=== PATIENT | female | born 1945 | race Caucasian/White ===

== ENCOUNTER 2017-02-14 21:50 | Emergency (ER) | payer BC ==
[~2017-02-14] VITALS: Ht 167.6 cm; Wt 67.7 kg
[~2017-02-14 21:50] MED LIST: DEXI30CA2 PO; ESTR1TAB; TAB-TAB PO
[2017-02-14 21:53] VITALS: BP 123/65; PULSE 77; RESP 16; TEMP 97.9; O2SAT 100
[2017-02-14 22:11] VITALS: BP 123/65; PULSE 77; RESP 16; TEMP 97.9; O2SAT 100
--- NOTE | 2017-02-14 22:14 | PD ---
HPI Chief Complaint: Laceration/Skin Injury Time Seen by Provider: 22:08 Travel History International Travel<30 days: No Contact w/Intl Traveler<30days: No Traveled to known affect area: No History of Present Illness HPI 71-year-old female presents the emergency department with laceration to the distal left palmar surface of the fifth digit. Patient was helping her with a lamp when she was cut by a sharp edge. Patient attempted to fix the laceration herself with butterfly bandages without much success with continued bleeding. Pain is a 2 out of 10. She has no numbness or tingling. Range of motion is intact. No other injuries reported. Patient is unsure of her last tetanus. She has no known drug allergies. [facility] Past Medical History GERD: Yes Past Surgical History Tonsillectomy: Yes Social History Alcohol Use: Yes (1 COCKTAIL WITH DINNER 5 NIGHTS A WEEK) Tobacco Use: No Substance Use: No Allergies-Medications (Allergen,Severity, Reaction): Coded Allergies: No Known Allergies (Unverified , 03/11/15) Reported Meds & Prescriptions Reported Meds & Active Scripts Active Reported Dexilant 30 mg (Dexlansoprazole) 30 Mg Cap 30 Mg PO DAILY Lopreeza 0.5-0.1 mg (Estradiol & Norethindrone Acet) 1 Tab Tab Multivitamin (Multivitamins) 1 Tab Tab 1 Tab PO DAILY Review of Systems Except as stated in HPI: all other systems reviewed are Neg General / Constitutional: No: Fever Eyes: No: Visual changes HENT: No: Headaches Cardiovascular: No: Chest Pain or Discomfort Respiratory: No: Shortness of Breath Gastrointestinal: No: Abdominal Pain Genitourinary: No: Dysuria Musculoskeletal: No: Pain Skin: No Rash Neurologic: No: Weakness Psychiatric: No: Depression Endocrine: No: Polydipsia Hematologic/Lymphatic: No: Easy Bruising Physical Exam Narrative GENERAL: Patient appears in no apparent distress. SKIN: Warm and dry. Normal color. Normal turgor. Patient has somewhat jagged laceration measuring 1.5 cm laceration to the distal fourth digit on the palmar aspect of the left hand. HEAD: Atraumatic. Normocephalic. EYES: Pupils equal and round. No scleral icterus. No injection or drainage. ENT: No nasal bleeding or discharge. Mucous membranes pink and moist. Pharynx is normal. Airway is patent. NECK: Trachea midline. Supple nontender. CARDIOVASCULAR: Regular rate and rhythm. RESPIRATORY: No accessory muscle use. MUSCULOSKELETAL: Extremities without clubbing, cyanosis, or edema. No obvious deformities. NEUROLOGICAL: Awake and alert. No obvious cranial nerve deficits. Motor grossly within normal limits. Five out of 5 muscle strength in the arms and legs. Normal speech. PSYCHIATRIC: Appropriate mood and affect; insight and judgment normal. Data Data Last Documented VS Vital Signs Date Time Temp Pulse Resp B/P Pulse Ox O2 Delivery O2 Flow Rate FiO2 02/14/17 22:11 97.9 77 16 123/65 100 Orders Lidocai-Epi 1%-1:100,000 Inj (Xylocaine- (02/14/17 22:15) Tetanus/Diphtheria Tox Adult (Tetanus/Di (02/14/17 22:30) MDM Medical Decision Making Medical Screen Exam Complete: Yes Emergency Medical Condition: Yes Differential Diagnosis Accidental laceration. Need for tetanus. Laceration repair. Narrative Course Patient is medically stable at time of exam. Laceration was repaired. See procedure note. Dressing is applied and wound care is discussed with patient. Antibiotics not felt warranted at this time. Patient is to follow-up in one week for wound check and suture removal. Patient use Tylenol and ibuprofen and ice as discussed as needed. Patient follow-up sooner with worsening symptoms as needed. Diagnosis Primary Impression: Laceration of left ring finger w/o foreign body w/o damage to nail Qualified Code: S61.215A - Laceration of left ring finger w/o foreign body w/ o damage to nail, initial encounter Referrals: Primary Care Physician 1 week Patient Instructions: Finger Laceration (ED), General Instructions Additional Instructions: Dressing is applied and wound care is discussed with patient. Antibiotics not felt warranted at this time. Patient is to follow-up in one week for wound check and suture removal. Patient use Tylenol and ibuprofen and ice as discussed as needed. Patient follow-up sooner with worsening symptoms as needed. Med/Other Pt SpecificInfo: No Meds Exist/No RX given, Wound Care Disposition: DISCHARGE HOME Condition: Stable Samir Garcia February 14, 2017 22:13
[2017-02-14] MEDS ORDERED: LIDOCAINE 1%/EPINEPHrine 1:100,000 SOLN 20 ML VIAL INFIL ONE (22:15)
[2017-02-14] MEDS ORDERED: TETANUS/DIPHTHERIA TOXOID ADULT 0.5 ML VIAL IM ONE (22:30)
== END 2017-02-14 23:00 | disposition home or self-care (01) ==
LOC: PHEFT 21:50
DX: S61.215A Laceration without foreign body of left ring finger without damage to nail, initial encounter (principal); Z23 Encounter for immunization; W45.8XXA Other foreign body or object entering through skin, initial encounter; Y93.9 Activity, unspecified; Y92.9 Unspecified place or not applicable; Y99.9 Unspecified external cause status
CPT/HCPCS: 12001; 90471; 90714